=== PATIENT | female | born 1950 | race African-American/Black ===

== ENCOUNTER 2020-01-01 09:56 | Emergency (ER) | payer MEDICARE ==
[~2020-01-01] VITALS: Ht 162.6 cm; Wt 63.5 kg
[2020-01-01] MEDS ORDERED: HYDROCODONE/ACETAMINOPHEN 5/325MG TABLET PO ONE (10:45)
[2020-01-01 13:19] VITALS: BP 125/79
== END 2020-01-01 13:19 | disposition home or self-care (01) ==
LOC: ER 10:23
DX: M25.551 Pain in right hip (principal); R03.0 Elevated blood-pressure reading, without diagnosis of hypertension; J45.909 Unspecified asthma, uncomplicated; E11.9 Type 2 diabetes mellitus without complications; I51.9 Heart disease, unspecified
CPT/HCPCS: 73521; 99283

== ENCOUNTER → 2020-01-12 | Outpatient (CLI) | payer MEDICARE, MEDICAID | END | disposition home or self-care (01) | LOC: LAB 08:29 | PROVIDERS: ATTEND Orthopaedic Surgery | DX: Z01.812 Encounter for preprocedural laboratory examination (principal); Z20.828 Contact with and (suspected) exposure to other viral communicable diseases; M16.11 Unilateral primary osteoarthritis, right hip | CPT/HCPCS: C9803; U0003 ==